=== PATIENT | male | born 1965 | race Caucasian/White ===

== ENCOUNTER 2019-09-02 09:36 | Emergency (ER) | payer BC, SELFPAY ==
[2019-09-02 09:53] VITALS: BP 131/90; PULSE 100; RESP 16; TEMP 36.5; O2SAT 97
--- NOTE | 2019-09-02 09:56 | ED.EYEPROB ---
HPI - Eye Problem General Chief complaint: Eye Problems Stated complaint: L EYE INJURY Time Seen by Provider: 09/02/19 09:56 Source: patient and RN notes reviewed History of Present Illness HPI Narrative: Patient is a 54-year-old male that presents the urgent care with complaints of left eye redness, swelling, tearing. Patient states that he believes his dog's paw may have touched his eye Jamie while playing around. Patient states that he woke up today with a little bit of swelling to the left eye. Patient denies any pain or vision loss. Denies any change in vision. No other acute complaints. No acute distress noted. Patient aware the plan of care. Related Data Home Medications Medication Instructions Recorded Confirmed ascorbic acid (vitamin C) [Vitamin 500 mg PO DAILY 09/02/19 09/02/19 C] dx-agjx-phdlp-lycopene-ginkgo tablet PO 09/02/19 [One-A-Day Men 50 Plus (ginkgo)] Allergies Allergy/AdvReac Type Severity Reaction Status Date / Time No Known Allergies Allergy Verified 09/02/19 09:49 Review of Systems Review of Systems: Narrative: CONSTITUTIONAL: Denies fever, chills, or sweats. EYES: Reports of left eye redness, drainage, swelling ENT: Denies rhinorrhea, congestion, sore throat, or otalgia. CARDIOVASCULAR: Denies chest pain, palpitations, or edema. RESPIRATORY: Denies cough or dyspnea. GASTROINTESTINAL: Denies abdominal pain, nausea, vomiting, or diarrhea. GENITOURINARY: Denies dysuria or hematuria. SKIN: Denies rash or itching. MUSCULOSKELETAL: Denies back pain, joint pain, or myalgia. NEUROLOGIC: Denies headache, numbness, or weakness. All other systems reviewed are negative, except as documented in HPI. PMFSH Comments At the time of my signature, I reviewed and agree with the nursing past medical, surgical, social, and family history. There is no relevant family history pertinent to the patient complaint. Exam Narrative: Exam Narrative: GENERAL: This is a well-nourished, well-developed patient, in no apparent distress. HEAD: normocephalic, atraumatic. EYES: PERRL. Mild to moderate injection noted to left conjunctivea with moderate clear tearing and slight periorbital surrounding edema. No obvious injury. Very mild/small subconjunctival hemorrhage noted to the medial left conjunctivea. Vision is grossly intact. EARS: External ears normal NOSE: External nose normal with no obvious nasal discharge THROAT: Mucous membranes moist NECK: Neck supple CARDIOVASCULAR: Regular rate and rhythm without murmurs, gallops, or rubs. RESPIRATORY: Clear to auscultation. Breath sounds equal bilaterally. No wheezes, rales, or rhonchi. SKIN: warm, intact with no suspicious lesions or rash, good texture and turgor. NEURO: awake, alert, and oriented to person, place and time. There were no obvious focal neurologic abnormalities. EXTREMITIES: No clubbing, cyanosis, or edema. Course Vital Signs Vital signs: Vital Signs Temperature 97.7 F 09/02/19 09:53 Pulse Rate 100 09/02/19 09:53 Respiratory Rate 16 09/02/19 09:53 Blood Pressure 131/90 09/02/19 09:53 Pulse Oximetry 97 09/02/19 09:53 Temperature 97.7 F 09/02/19 09:53 Pulse Rate 100 09/02/19 09:53 Respiratory Rate 16 09/02/19 09:53 Blood Pressure 131/90 09/02/19 09:53 Pulse Oximetry 97 09/02/19 09:53 Reviewed Procedures Other Procedure Procedure 1: Other Procedure: Saline eyewash to the left eye. Patient tolerated. Patient refused tetracaine and staining. Patient states he will follow-up with his secretary office clerk on Tuesday for further evaluation of the eye. MDM - Eye Problem MDM Narrative Medical decision making narrative: Advised the patient to use a saline eye wash once or twice per day. Use eyedrops to the left eye as directed. Make sure to wash the applicator Tip between each applications. Complete oral antibiotic regimen as prescribed to prevent periorbital cellulitis. Avoid patching the eye. May use
== END 2019-09-02 10:27 | disposition home or self-care (01) ==
PROVIDERS: Emergency Provider Nurse Practitioner Family
DX: S05.02XA Injury of conjunctiva and corneal abrasion without foreign body, left eye, initial encounter (principal); X58.XXXA Exposure to other specified factors, initial encounter
CPT/HCPCS: 99203; A9270; G0463